=== PATIENT | male | born 1960 | race Caucasian/White ===

== ENCOUNTER 2017-01-09 11:12 | Emergency (ER) | payer OTHER ==
[~2017-01-09] VITALS: Wt 83.0 kg
[~2017-01-09 11:12] MED LIST: ACET500C5 PO; ALBU8.5H3 INH; AMOX500T PO; GUAI120L41 PO; IBUP-1542 PO; ONDA4TAB11 PO
[2017-01-09] MEDS ORDERED: LORA10TA3 PO (12:52)
[2017-01-09] MEDS ORDERED: IBUP-1542 PO (12:52)
[2017-01-09] MEDS ORDERED: IBUPROFEN 600 MG TAB PO ONE (13:00)
--- NOTE | 2017-01-09 20:16 | ERD ---
ER Documentation Chief Complaint Date/Time DATE: 01/09/17 TIME: 20:15 Chief Complaint has flu since saturday,st,cough HPI 56-year-old man complains of nasal congestion, rhinorrhea, and clear sputum cough 3 days. He also states his uvula feels inflamed although he has no difficulty swallowing, no fevers or chills, no rash, no recent travel or antibiotic use. ROS All systems reviewed and are negative except as per history of present illness. Medications Home Meds Active Scripts Loratadine* (Loratadine*) 10 Mg Tablet, 10 MG PO DAILY for NASAL CONGESTION, # 15 TAB Prov:SADAF HARMON MD 01/09/17 Ibuprofen* (Motrin*) 600 Mg Tab, 600 MG PO Q8 for PAIN AND/OR INFLAMMATION, #30 TAB Prov:SADAF HARMON MD 01/09/17 Acetaminophen* (Tylophen*) 500 Mg Capsule, 1 CAP PO Q6H Y for PAIN AND OR ELEVATED TEMP, #20 CAP Prov:FLACO NUGENT PA-C 09/01/16 Amoxicillin Trihydrate (Amoxicillin) 500 Mg Tablet, 500 MG PO BID for 10 Days, # 20 TAB Prov:FLACO NUGENT PA-C 09/01/16 Guaifenesin/Codeine Phosphate (Codeine-Guaifen 10-100 mg/5 ml) 120 Ml Liquid, 120 ML PO QHS for 7 Days Prov:FLACO NUGENT PA-C 09/01/16 Ibuprofen* (Motrin*) 600 Mg Tab, 600 MG PO Q6H Y for PAIN for 7 Days, TAB Prov:FLACO NUGENT PA-C 09/01/16 Ondansetron (Zofran Odt) 4 Mg Tab.rapdis, 4 MG PO Q4 for 7 Days Prov:FLACO NUGENT PA-C 09/01/16 Albuterol Sulfate* (Proair HFA*) 8.5 Gm Hfa.aer.ad, 2 PUFF INH Q4, #1 INHALER Prov:FLACO NUGENT PA-C 09/01/16 Allergies Allergies: Coded Allergies: No Known Allergy (Verified Allergy, Mild, 05/28/07) PMhx/Soc History of [place], coronary artery disease History of Surgery: Yes (UMBILICAL HERNIA REPAIR, CARDIAC STENT PLACEMENT) Anesthesia Reaction: No Hx Neurological Disorder: No Hx Respiratory Disorders: No Hx Cardiac Disorders: Yes (HTN, HDL, STEMI) Hx Psychiatric Problems: No Hx Miscellaneous Medical Probl: No Hx Alcohol Use: Yes (1X/WEEK) Hx Substance Use: No Hx Tobacco Use: Yes Smoking Status: Never smoker FmHx Family History: No diabetes Physical Exam Vitals Vital Signs Date Time Temp Pulse Resp B/P Pulse Ox O2 Delivery O2 Flow Rate FiO2 01/09/17 11:17 98.2 58 20 148/77 99 Physical Exam GENERAL: Well-developed, well-nourished, well-hydrated, in no apparent distress , looks nontoxic in appearance HEENT: Positive nasal congestion, uvula is mildly inflamed, no cervical spine tenderness or step-off deformities, no goiter, no jaundice or icterus, extraocular movements intact without pain. No submandibular induration, and no pharyngeal erythema NEURO: Alert and oriented 3, cranial nerves II through XII intact bilaterally, pupils equal round reactive to light, no focal deficits or facial asymmetry, sensation intact distally Strength 5/5 in upper and lower extremities bilaterally CARDIAC: Regular rate and rhythm, no murmurs rubs or gallops LUNGS: Clear bilaterally no wheezing crackles or stridor ABDOMEN: Soft nontender, no guarding, no rigidity, no rebound, no psoas sign no obturator sign. Normoactive bowel sounds SKIN: Warm and dry to touch, no abrasions, contusions, or hematomas, no lacerations, no ecchymosis, no target lesions, and without ulcers EXTREMITIES: No clubbing cyanosis or edema, calves are bilaterally symmetrical, no Homans sign, no popliteal cord sign. Distal pulses equal and bilateral PSYCH: Normal affect without agitation or irritability Results 24 hrs Current Medications Medications (Trade) Dose Ordered Sig/Adriana Route PRN Reason Start Time Stop Time Status Last Admin Dose Admin Ibuprofen (Motrin) 600 mg ONCE ONCE PO 01/09/17 13:00 01/09/17 13:01 DC 01/09/17 12:54 Procedures/MDM I administered ibuprofen 600 mg p.o. with good response. Differential diagnoses considered, included but not limited to acute coronary syndrome, pulmonary embolism, aortic dissection, abdominal aortic aneurysm, sepsis, stroke, meningitis, encephalitis, pneumonia, appendicitis, cholecystitis , bowel obstruction, pyelonephritis, nephrolithiasis, cystitis, as well as metabolic, hematologic, and electrolyte abnormalities. As well as abscess, cellulitis, fractures, and dislocations. Patient feels much better at this time, and vital signs are normal, symptoms have improved. I did give strict instructions to return to the ED if symptoms continue or worsen, patient will otherwise follow-up with primary care physician. Patient understood instructions and agreed to plan. Departure Diagnosis: Primary Impression: Uvulitis Additional Impression: URI (upper respiratory infection) URI type: acute nasopharyngitis (common cold) Qualified Code: J00 - Acute nasopharyngitis Condition: Good Patient Instructions: Uvulitis, Uri, Viral, No Abx (Adult) SADAF HARMON MD January 09, 2017 20:16
== END 2017-01-09 13:17 | disposition home or self-care (01) ==
LOC: FTE 11:12
DX: K12.2 Cellulitis and abscess of mouth (principal); J00 Acute nasopharyngitis [common cold]; I10 Essential (primary) hypertension; I25.10 Atherosclerotic heart disease of native coronary artery without angina pectoris; Z87.891 Personal history of nicotine dependence; Z98.61 Coronary angioplasty status
CPT/HCPCS: 99283

== ENCOUNTER 2017-05-29 11:56 | Emergency (ER) | payer SELFPAY ==
[~2017-05-29] VITALS: Ht 175.3 cm; Wt 74.5 kg
[~2017-05-29 11:56] MED LIST changes: +LORA10TA3 PO
[2017-05-29 12:02] VITALS: Ht 175.3 cm; Wt 74.5 kg
== END 2017-05-29 13:56 | disposition left against medical advice (07) ==
LOC: E/R 11:56
DX: Z53.21 Procedure and treatment not carried out due to patient leaving prior to being seen by health care provider (principal)